=== PATIENT | female | born 1945 | race Caucasian/White ===

== ENCOUNTER 2022-03-21 06:30 | Day surgery (SDC) | payer BC, MEDICARE ==
[~2022-03-21 06:30] MED LIST: Lactated Ringers 1,000 ML IV SCH; ceFAZolin 2 GM in Premix Bag 1 BAG IV ONE
[2022-03-21] MEDS ORDERED: Rocuronium Bromide 50 MG/5 ML Syringe ONE (07:23)
[2022-03-21] MEDS ORDERED: Sugammadex Sodium 200 MG/2 ML VIAL ONE (07:23)
[2022-03-21] MEDS ORDERED: Propofol 200 MG/20 ML SDV ONE (07:23)
[2022-03-21] MEDS ORDERED: Lidocaine 2% 5 ML SDV ONE (07:23)
[2022-03-21] MEDS ORDERED: Dexamethasone 4 MG/ML 5 ML MDV ONE (07:23)
[2022-03-21] MEDS ORDERED: Albuterol 0.083% 2.5 MG/3 ML Neb Soln NEB PRN (07:24)
[2022-03-21] MEDS ORDERED: Naloxone 0.4 MG/ML SDV IVPUSH PRN (07:24)
[2022-03-21] MEDS ORDERED: HYDROmorphone 1 MG/ML Syringe IVPUSH PRN (07:24)
[2022-03-21] MEDS ORDERED: Morphine 2 MG/ML SYRINGE IVPUSH PRN (07:24)
[2022-03-21] MEDS ORDERED: Metoclopramide 10 MG/2 ML SDV IVPUSH PRN (07:24)
[2022-03-21] MEDS ORDERED: fentaNYL 100 MCG/2 ML SDV ONE (07:24)
[2022-03-21] MEDS ORDERED: Ondansetron 4 MG/2 ML SDV IVPUSH PRN ×2 (07:24→09:06)
[2022-03-21] MEDS ORDERED: fentaNYL 50 MCG/ML SDV IVPUSH PRN (07:24)
[2022-03-21] MEDS ORDERED: Acetaminophen 1,000 MG in Premix Bag 1 BAG IV PRN (09:10)
[2022-03-22] MEDS ORDERED: Levothyroxine 88 MCG Tab PO SCH (07:30)
[2022-03-22] MEDS ORDERED: Metoprolol Succinate 25 MG Tab.ER PO SCH (09:00)
[2022-03-22] MEDS ORDERED: amLODIPine 5 MG Tab PO SCH (09:00)
== END 2022-03-21 16:20 | disposition home or self-care (01) ==
LOC: MW.SDS 06:30
PROVIDERS: ATTEND Obstetrics & Gynecology
DX: N81.10 Cystocele, unspecified (principal); E78.00 Pure hypercholesterolemia, unspecified; I10 Essential (primary) hypertension; I48.91 Unspecified atrial fibrillation; E66.9 Obesity, unspecified; Z98.890 Other specified postprocedural states; Z88.2 Allergy status to sulfonamides; Z79.899 Other long term (current) drug therapy; Z68.31 Body mass index [BMI] 31.0-31.9, adult
CPT/HCPCS: 57240; J0131; J0690; J1100; J2704; J3010; J3490; J7120; 00942; 99100